=== PATIENT | female | born 1950 | race Caucasian/White ===

== ENCOUNTER 2022-02-18 09:27 | Emergency (ER) | payer MEDICARE, OTHER ==
[~2022-02-18] VITALS: Ht 160 cm; Wt 67.1 kg
[~2022-02-18 09:27] MED LIST: BENA20 PO; HIGH POTENCY I134 MG PO; HYDCHL12.5 PO; Hair, Skin & N1 EACH PO; LEVSOD100 PO; METF500 PO; Omeprazole20 M1 PO; SIMV40 PO
[2022-02-18 14:03] LABS: Source, Urine Clean Catch
[2022-02-18 14:17] LABS: Appearance, Urine Turbid (Clear); Bilirubin, Urine Neg (Neg); Blood, Urine 2+ (Neg); Color, Urine Yellow (P-Yellow); Glucose Qualitative, Urine Neg (Neg); Ketones, Urine Neg (Neg); Leukocyte Esterase, Urine 3+ (Neg); Nitrite, Urine Neg (Neg); Protein, Urine 3+ (Neg); Urobilinogen, Urine NORM (Normal)
[2022-02-18 14:35] LABS: Bacteria Many /hpf; Hyaline Casts 0-2 /lpf (0-2); Squamous Epithelial Cells Mod /hpf (Few); Transitional Epithelial Cells Rare /hpf (0-Rare); White Blood Cells, Urine TNTC /hpf (0-5)
[2022-02-18] MEDS ORDERED: CEFD300 PO (14:53)
== END 2022-02-18 15:16 | disposition home or self-care (01) ==
LOC: ER 09:27
PROVIDERS: Physician Assistant
DX: N30.90 Cystitis, unspecified without hematuria (principal); M54.50 Low back pain, unspecified; E11.9 Type 2 diabetes mellitus without complications; I10 Essential (primary) hypertension; E03.9 Hypothyroidism, unspecified; Z79.84 Long term (current) use of oral hypoglycemic drugs; Z79.899 Other long term (current) drug therapy; Z88.2 Allergy status to sulfonamides; Z88.1 Allergy status to other antibiotic agents
CPT/HCPCS: 51798; 81001; A9270; J1885

== ENCOUNTER → 2022-03-04 | Outpatient (CLI) | payer MEDICARE, OTHER ==
[~2022-03-04] MED LIST changes: +CEFD300 PO
== END ==
LOC: LAB 16:00 → LAB SHORT 16:00
DX: N30.00 Acute cystitis without hematuria (principal)
CPT/HCPCS: 87077; 87086; 87186

== ENCOUNTER 2022-12-31 08:44 | Day surgery (SDC) | payer MEDICARE, OTHER ==
[~2022-12-31] VITALS: Ht 160 cm; Wt 64.9 kg
--- NOTE | 2022-12-31 09:29 | NUR ---
12/31/22 0929 Madhuri Mai CALL LIGHT WITHIN REACH. TETRACAINE IN AT LEFT EYE AT 0925 AND PLEDGETT IN AT 0914
--- NOTE | 2022-12-31 11:34 | NUR ---
12/31/22 1134 Adria Coelho PT INSTRUCTED TO MONITOR BLOOD PRESSURE AT HOME AND FOLLOW UP WITH PCP REGARDING HYPERTENSION.
== END 2022-12-31 11:00 | disposition home or self-care (01) ==
LOC: ORSCSDS 08:44
PROVIDERS: Student in an Organized Health Care Education/Training Program
PROC: 08DK3ZZ Extraction of Left Lens, Percutaneous Approach (ICD-10-PCS; principal; 2022-12-31 10:00)
DX: E11.36 Type 2 diabetes mellitus with diabetic cataract (principal); H25.13 Age-related nuclear cataract, bilateral; Z87.891 Personal history of nicotine dependence; I10 Essential (primary) hypertension; Z79.82 Long term (current) use of aspirin; Z79.84 Long term (current) use of oral hypoglycemic drugs; Z79.899 Other long term (current) drug therapy
CPT/HCPCS: 82947; J2001; J2250; J3010; J7040; V2632

== ENCOUNTER 2023-01-21 08:57 | Day surgery (SDC) | payer MEDICARE, OTHER ==
[~2023-01-21] VITALS: Ht 160 cm; Wt 64.7 kg
--- NOTE | 2023-01-21 10:15 | NUR ---
01/21/23 1015 Kamilla Ervin TETRACAINE TO RIGHT EYE AT 1010 PLEDGET TO RIGHT EYE AT 1012 BY [facility].MACEY
[2023-01-21 11:44] VITALS: BP 148/78
--- NOTE | 2023-01-21 12:01 | NUR ---
01/21/23 1201 [facility], SITE ASSESSMENT WNL. SITE FROM 1ST IV ATTEMPT IS SLIGHTLY SWOLLEN AND BRUISED. APPLIED HEAT PACK TO ASSIST WITH SWELLING AND PAIN. PT STATES IMPROVING.
== END 2023-01-21 12:00 | disposition home or self-care (01) ==
LOC: ORSCSDS 08:57
PROVIDERS: Student in an Organized Health Care Education/Training Program
PROC: 08DJ3ZZ Extraction of Right Lens, Percutaneous Approach (ICD-10-PCS; principal; 2023-01-21 10:30)
DX: E11.36 Type 2 diabetes mellitus with diabetic cataract (principal); H25.11 Age-related nuclear cataract, right eye; Z96.1 Presence of intraocular lens; Z79.84 Long term (current) use of oral hypoglycemic drugs; K21.9 Gastro-esophageal reflux disease without esophagitis; I10 Essential (primary) hypertension; Z87.891 Personal history of nicotine dependence; Z79.82 Long term (current) use of aspirin; Z79.899 Other long term (current) drug therapy
CPT/HCPCS: 82947; J2250; J3010; J7040; V2632

== ENCOUNTER → 2023-10-01 | Outpatient (CLI) | payer MEDICARE, OTHER | LOC: LAB 17:16 → LAB SHORT 17:16 | DX: N89.8 Other specified noninflammatory disorders of vagina (principal) | CPT/HCPCS: 87070; 87205 ==

== ENCOUNTER → 2023-11-17 | Outpatient (CLI) | payer MEDICARE, OTHER | END | disposition home or self-care (01) | LOC: LAB SHORT 11:30 | DX: N89.8 Other specified noninflammatory disorders of vagina (principal) | CPT/HCPCS: 87070; 87205 ==

== ENCOUNTER → 2025-09-02 | Outpatient (CLI) | payer MEDICARE, OTHER ==
[2025-09-02 14:00] LABS: BASOPHILS ABSOLUTE AUTO 0.06 K/mm3 (0.00-0.23); BASOPHILS PERCENT AUTO 1 % (0-2); EOSINOPHILS ABSOLUTE AUTO 0.19 K/mm3 (0.00-0.68); EOSINOPHILS PERCENT AUTO 4 % (0-6); Hematocrit 34.9 % (33.0-51.0); Hemoglobin 12.0 g/dL (11.5-16.0); IMMATURE GRAN ABSOLUTE AUTO 0.02 K/mm3 (0.00-0.10); IMMATURE GRAN PERCENT AUTO 0 % (0-1); LYMPHOCYTES ABSOLUTE AUTO 1.27 K/mm3 (0.84-5.20); LYMPHOCYTES PERCENT AUTO 25 % (21-46); MONOCYTES ABSOLUTE AUTO 0.41 K/mm3 (0.16-1.47); MONOCYTES PERCENT AUTO 8 % (4-13); Mean Corpuscular HGB Conc 34.4 g/dL (31.5-36.5); Mean Corpuscular Volume 103 fL (80-100); NEUTROPHILS ABSOLUTE AUTO 3.16 K/mm3 (1.96-9.15); NEUTROPHILS PERCENT AUTO 62 % (41-73); NRBC ABSOLUTE 0.00 K/mm3 (0.00-0.02); NRBC Auto 0.0 /100 WBC (0.0-0.2); Platelet Count 332 K/mm3 (150-400); RDW Coefficient Variation 12.0 % (11.7-14.2); RDW Standard Deviation 45.5 fL (35.1-46.3)
[2025-09-02 15:04] LABS: Anion Gap 9 mmol/L (3-11); Blood Urea Nitrogen 18 mg/dL (8-24); CHOL/HDL RATIO 2.5; CO2, Blood 26 mmol/L (21-32); Calcium, Blood 9.1 mg/dL (8.5-10.1); Chloride, Blood 102 mmol/L (98-108); Cholesterol 138 mg/dL (50-200); Creatinine, Blood 0.77 mg/dL (0.40-1.00); Ferritin, Serum 20 ng/mL (8-252); Glucose, Blood 128 mg/dL (70-99); HDL Cholesterol 56 mg/dL (>39); LDL/HDL RATIO 1.1; Low Density Lipoprotein Chol 63 mg/dL (0-110); Potassium, Blood 4.2 mmol/L (3.5-5.5); Sodium, Blood 133 mmol/L (136-145); Total Iron Binding Capacity 331 ug/dL (250-450); Triglycerides 95 mg/dL (30-160); Very Low Density Lipoprot Chol 19 mg/dL (6-32)
== END ==
LOC: LAB SHORT 12:21 → LAB 12:21
PROVIDERS: Nurse Practitioner Family
DX: E78.5 Hyperlipidemia, unspecified (principal); D50.9 Iron deficiency anemia, unspecified; E11.42 Type 2 diabetes mellitus with diabetic polyneuropathy; Z79.899 Other long term (current) drug therapy
CPT/HCPCS: 80048; 80061; 82728; 83036; 83540; 83550; 85025